=== PATIENT | female | born 1970 | race Caucasian/White ===

== ENCOUNTER 2017-08-11 13:59 | Emergency (ER) | payer OTHER ==
[~2017-08-11] VITALS: Ht 160 cm; Wt 200.9 kg
[~2017-08-11 13:59] MED LIST: LISINOPRIL10 MG PO; NORCO 5-325 TA1 EACH PO; VIBRAMYCIN100 MG PO
[2017-08-11] MEDS ORDERED: LASIX80 MG PO (15:35)
[2017-08-11] MEDS ORDERED: MIRAPEX0.5 MG PO (15:36)
[2017-08-11] MEDS ORDERED: VENTOLIN HFA18 GM INH (15:37)
[2017-08-11] MEDS ORDERED: QVAR8.7 G1 (15:37)
[2017-08-11] MEDS ORDERED: COUMADIN5 MG PO (19:05)
[2017-08-11] MEDS ORDERED: LOVENOX150 MG SUB-Q (19:05)
--- NOTE | 2017-08-12 | EKG ---
[facility] [address] [facility] [place] [address] Signed Sinus rhythm with occasional premature ventricular complexes Low voltage QRS Borderline ECG No previous ECGs available Confirmed by ALCIDES BOOTHE MD ([id number]) on 08/12/2017 12:00:29 AM Electronically Signed By: ALCIDES OBOTHE MD 08/12/17 0000 PATIENT NAME: HOLDEN BEVERLY Electrocardiogram DATE OF : 68 PHYSICIAN: ALCIDES BOOTHE MD REPORT #: [id number] REPORT IS CONFIDENTIAL AND NOT TO BE RELEASED WITHOUT AUTHORIZATION
== END 2017-08-11 19:27 | disposition home or self-care (01) ==
LOC: ED 13:59
DX: I82.402 Acute embolism and thrombosis of unspecified deep veins of left lower extremity (principal); E66.01 Morbid (severe) obesity due to excess calories; Z68.43 Body mass index [BMI] 50.0-59.9, adult; I10 Essential (primary) hypertension; Z88.0 Allergy status to penicillin; Z88.8 Allergy status to other drugs, medicaments and biological substances; Z88.5 Allergy status to narcotic agent; Z79.899 Other long term (current) drug therapy
CPT/HCPCS: 80048; 85025; 85379; 85610; 85730; 93005; 93010; 93971; 96372; 99284; J1650

== ENCOUNTER 2019-04-13 09:39 | Emergency (ER) | payer BC ==
[~2019-04-13] VITALS: Ht 160 cm; Wt 204.1 kg
[~2019-04-13 09:39] MED LIST changes: +COUMADIN5 MG PO; +LASIX80 MG PO; +LOVENOX150 MG SUB-Q; +MIRAPEX0.5 MG PO; +QVAR8.7 G1; +VENTOLIN HFA18 GM INH
[2019-04-13] MEDS ORDERED: TYLENOL325 M1 PO (09:55)
[2019-04-13] MEDS ORDERED: AMITRIPTYLINE H10 MG PO (09:55)
[2019-04-13] MEDS ORDERED: CITALOPRAM HBR20 MG PO (09:55)
[2019-04-13] MEDS ORDERED: ZANTAC150 MG PO (09:56)
[2019-04-13] MEDS ORDERED: VITAMIN D1000 UNIT PO (09:56)
== END 2019-04-13 10:45 | disposition home or self-care (01) ==
LOC: ED 09:39
DX: S93.601A Unspecified sprain of right foot, initial encounter (principal); I10 Essential (primary) hypertension; E66.01 Morbid (severe) obesity due to excess calories; Z88.0 Allergy status to penicillin; Z88.5 Allergy status to narcotic agent; Z88.6 Allergy status to analgesic agent; Z88.8 Allergy status to other drugs, medicaments and biological substances; Z79.899 Other long term (current) drug therapy; W22.8XXA Striking against or struck by other objects, initial encounter
CPT/HCPCS: 73630; 99283

== ENCOUNTER 2019-08-28 11:50 | Emergency (ER) | payer OTHER ==
[~2019-08-28] VITALS: Ht 160 cm; Wt 204.1 kg
[~2019-08-28 11:50] MED LIST changes: +AMITRIPTYLINE H10 MG PO; +CITALOPRAM HBR20 MG PO; +TYLENOL325 M1 PO; +VITAMIN D1000 UNIT PO; +ZANTAC150 MG PO
[2019-08-28] MEDS ORDERED: CELEXA10 MG PO (12:07)
--- NOTE | 2019-08-28 18:33 | EKG ---
[facility] [address] [facility] [place] [address] Signed Normal sinus rhythm Low voltage QRS Borderline ECG When compared with ECG of 11-AUG-2017 17:10, premature ventricular complexes are no longer present Confirmed by ALCIDES BOOTHE MD ([id number]) on 08/28/2019 6:33:12 PM Electronically Signed By: ALCIDES BOOTHE MD 08/28/19 1833 PATIENT NAME: SIRIAHOLDENBIN LEWIS Electrocardiogram DATE OF : 68 PHYSICIAN: ALCIDES BOOTHE MD REPORT #: [id number] REPORT IS CONFIDENTIAL AND NOT TO BE RELEASED WITHOUT AUTHORIZATION
== END 2019-08-28 15:10 | disposition home or self-care (01) ==
LOC: ED 11:50
DX: R55 Syncope and collapse (principal); I10 Essential (primary) hypertension; Z88.5 Allergy status to narcotic agent; Z88.0 Allergy status to penicillin; Z88.6 Allergy status to analgesic agent; Z79.899 Other long term (current) drug therapy
CPT/HCPCS: 80053; 83735; 84484; 85025; 93005; 93010; 96360; 99284-25; J7120

== ENCOUNTER 2022-08-30 10:17 | Emergency (ER) | payer OTHER ==
[~2022-08-30] VITALS: Ht 160 cm; Wt 213.2 kg
[~2022-08-30 10:17] MED LIST changes: +CELEXA10 MG PO; +TUMS SMOOTHIES300 MG PO
[2022-08-30] MEDS ORDERED: PREDNISONE20 MG PO (12:08)
[2022-08-30] MEDS ORDERED: DOXYCYCLINE HY100 MG PO (12:08)
--- NOTE | 2022-09-02 20:54 | EKG ---
[facility] [address] [facility] [place] [address] Signed Normal sinus rhythm Cannot rule out Anterior infarct (cited on or before 19-MAY-2020) Abnormal ECG When compared with ECG of 19-MAY-2020 16:07, No significant change was found Confirmed by Kimberly Gates MD () on 09/02/2022 8:54:49 PM Electronically Signed By: KIMBERLY GATES MD 09/02/222053 PATIENT NAME: HOLDEN BEVERLY Electrocardiogram DATE OF : 68 PHYSICIAN: KIMBERLY GATES MD REPORT #: [id number] REPORT IS CONFIDENTIAL AND NOT TO BE RELEASED WITHOUT AUTHORIZATION
== END 2022-08-30 12:46 | disposition home or self-care (01) ==
LOC: ED 10:17
DX: J40 Bronchitis, not specified as acute or chronic (principal); Z20.822 Contact with and (suspected) exposure to COVID-19; I10 Essential (primary) hypertension; E66.01 Morbid (severe) obesity due to excess calories; Z88.0 Allergy status to penicillin; Z88.6 Allergy status to analgesic agent; Z88.5 Allergy status to narcotic agent; Z88.8 Allergy status to other drugs, medicaments and biological substances; Z79.899 Other long term (current) drug therapy
CPT/HCPCS: 36415; 71045; 80053; 83735; 84484; 85025; 87502; 93005; 93010; 99284-25; U0003

== ENCOUNTER 2023-06-23 09:24 | Emergency (ER) | payer OTHER ==
[~2023-06-23] VITALS: Ht 160 cm; Wt 213.2 kg
[~2023-06-23 09:24] MED LIST changes: +DOXYCYCLINE HY100 MG PO; +PREDNISONE20 MG PO
[2023-06-23] MEDS ORDERED: CITALOPRAM HBR20 MG PO (09:41)
[2023-06-23] MEDS ORDERED: PRAMIPEXOLE DI0.5 MG PO (09:41)
[2023-06-23] MEDS ORDERED: CIPRO500 MG PO (12:27)
[2023-06-23] MEDS ORDERED: PYRIDIUM200 MG PO (12:27)
[2023-06-23 12:41] VITALS: BP 167/92
== END 2023-06-23 12:42 | disposition home or self-care (01) ==
LOC: ED 09:24
DX: N39.0 Urinary tract infection, site not specified (principal); R10.2 Pelvic and perineal pain; I10 Essential (primary) hypertension; E66.01 Morbid (severe) obesity due to excess calories; Z68.45 Body mass index [BMI] 70 or greater, adult; Z88.0 Allergy status to penicillin; Z88.8 Allergy status to other drugs, medicaments and biological substances; Z88.5 Allergy status to narcotic agent; Z79.899 Other long term (current) drug therapy
CPT/HCPCS: 36415; 76830; 76856; 80053; 81001; 85025; 87088; 87210; 87491; 96374; 96375; 96376; 99284-25; J0696; J2270; J2405

== ENCOUNTER 2023-08-27 03:39 | Emergency (ER) | payer OTHER ==
[~2023-08-27] VITALS: Ht 160 cm; Wt 227.6 kg
--- OUTSIDE RECORDS SUMMARY | ~2023-08-27 | XMS | Continuity of Care Document ---
Demographics + + + | Address | [address] | | | [place] [address] | + + + | Preferred Language | Unknown | + + + | Marital Status | | + + + | Adventist Affiliation | Unknown | + + + | Race | White | + + + | Ethnic Group | Not or | + + + Author + + + | Author | [facility] | + + + | Organization | [facility] | + + + | Address | [address] | | | [place] [address] | + + + | Phone | | + + + Care Team Providers + + + + | Care Usps Letter Carrier Name | Role | Phone | + + + + Unavailable | Unavailable | + + + + Allergies No information. Encounters No information. Functional Status No information. Immunizations No information. Medications No information. Problems + + + + | date | description | facility | + + + + | 2023-06-23 09:25 | MORBID (SEVERE) OBESITY | [facility] | | | DUE TO EXCESS CALORIES | | + + + + | 2023-06-23 09:25 | Essential (primary) | [facility] | | | hypertension | | + + + + | 2023-06-23 09:25 | URINARY TRACT INFECTION, | [facility] | | | SITE NOT SPECIFIED | | + + + + | 2023-06-23 09:25 | PELVIC AND PERINEAL PAIN | [facility] | + + + + | 2023-06-23 09:25 | DYSURIA | [facility] | + + + + | 2023-06-23 09:25 | BODY MASS INDEX (BMI) 70 | [facility] | | | OR GREATER, ADULT | | + + + + | 2023-06-23 09:25 | OTHER LABORATORY ANIMAL CARETAKER (CURRENT) | [facility] | | | DRUG THERAPY | | + + + + | 2023-06-23 09:25 | ALLERGY STATUS TO | [facility] | | | PENICILLIN | | + + + + | 2023-06-23 09:25 | ALLERGY STATUS TO NARCOTIC | [facility] | | | AGENT STATUS | | + + + + | 2023-06-23 09:25 | ALLERGY STATUS TO OTH | [facility] | | | DRUG/MEDS/BIOL SUBST STATUS | | | | | | + + + + Procedures No information. Results/Labs No information. Social History +--------+ + + | date | description | facility | +--------+ + + Vital Signs No information."
[~2023-08-27 03:39] MED LIST changes: +CIPRO500 MG PO; +PRAMIPEXOLE DI0.5 MG PO; +PYRIDIUM200 MG PO
[2023-08-27] MEDS ORDERED: PERCOCET 5-3251 EACH PO (05:20)
[2023-08-27 06:15] VITALS: BP 136/76
== END 2023-08-27 08:30 | disposition home or self-care (01) ==
LOC: ED 03:39
DX: S76.011A Strain of muscle, fascia and tendon of right hip, initial encounter (principal); M25.571 Pain in right ankle and joints of right foot; W01.0XXA Fall on same level from slipping, tripping and stumbling without subsequent striking against object, initial encounter; I10 Essential (primary) hypertension; Z88.0 Allergy status to penicillin; Z88.5 Allergy status to narcotic agent; Z88.8 Allergy status to other drugs, medicaments and biological substances; Z79.899 Other long term (current) drug therapy
CPT/HCPCS: 73502; 73610; 99283-25

== ENCOUNTER 2023-09-06 16:55 | Observation (INO) | payer BC ==
[~2023-09-06] VITALS: Ht 160 cm; Wt 227.0 kg
[~2023-09-06 16:55] MED LIST changes: +PERCOCET 5-3251 EACH PO; +TYLENOL EXTRA500 MG PO; -TYLENOL325 M1 PO; -VITAMIN D1000 UNIT PO; +VITAMIN D3250 MC2 PO
--- OUTSIDE RECORDS SUMMARY | 2023-09-06 16:56 | XMS ---
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 [place] has no Care Guidelines for this patient. [place] VISIT COUNT (12 MO.) [address] [facility] [place] TOTAL 3 NOTE: Visits indicate total known visits. ED/C VISIT TRACKING (12 MO.) 09/06/2023 16:[address] [facility] [place] TYPE: Emergency COMPLAINT: - FALL 08/27/2023 03:39 [facility] [place] TYPE: Emergency COMPLAINT: - HIP PAIN DIAGNOSES: - Allergy status to narcotic agent - Allergy status to other drugs, medicaments and biological substances - Allergy status to penicillin - Essential (primary) hypertension - Fall on same level from slipping, tripping and stumbling without subsequent striking against object, initial encounter - Other intermediate designer (current) drug therapy - Pain in right ankle and joints of right foot - Pain in right hip - Strain of muscle, fascia and tendon of right hip, initial encounter 06/23/2023 09:25 [facility] [place] TYPE: Emergency COMPLAINT: - VAGINAL PAIN, CRAMPING, ODOR DIAGNOSES: - Allergy status to narcotic agent - Allergy status to other drugs, medicaments and biological substances - Allergy status to penicillin - Body mass index [BMI] 70 or greater, adult - Dysuria - Essential (primary) hypertension - Morbid (severe) obesity due to excess calories - Other snf (current) drug therapy - Pelvic and perineal pain - Urinary tract infection, site not specified INPATIENT VISIT TRACKING (12 MO.) No inpatient visits to display in this time frame [id number]
[2023-09-06] MEDS ORDERED: B COMPLEX1 EACH PO (17:05)
[2023-09-06 17:26] LABS: BASOPHILS 0.7 % (0-2); EOSINOPHILS 3.1 % (0-6); HEMATOCRIT 30.1 % (35.0-50.0); HEMOGLOBIN 9.3 g/dL (12.0-18.0); MCH 25.2 (27-36); MCV 81.3 fl (81-99); MONOCYTES 5.3 % (0-12); NEUTROPHILS 80.9 % (39-80); PLATELET COUNT 234 K/uL (140-440); RBC 3.71 M/ul (4.3-5.7); RDW 19.2 (10.5-15.0)
[2023-09-06 17:43] LABS: ALBUMIN 3.4 g/dL (3.4-5.0); ALBUMIN/GLOBULIN RATIO 0.89 (1.1-2.4); ANION GAP 12.1 (7-21); BILIRUBIN, TOTAL 0.4 ng/dL (0.2-1.0); BUN/CREATININE RATIO 20.54 (6.0-28.6); CALCIUM 8.7 mg/dL (8.5-10.1); CREATININE, SERUM 0.73 mg/dL (0.55-1.02); POTASSIUM 4.1 mmol/L (3.5-5.1); PROTEIN, TOTAL 7.2 g/dL (6.4-8.2)
[2023-09-06 18:44] LABS: INFLUENZA B NAA NEGATIVE (NEGATIVE); RESPIRATORY SYNCYTIAL VIR NAA NEGATIVE (NEGATIVE)
[2023-09-07 12:37] VITALS: BP 139/64
[2023-09-07] MEDS ORDERED: GLUCOSAMINE CH1 EAC1 PO (14:13)
[2023-09-07] MEDS ORDERED: CAL MAG ZINC +1 EACH PO (14:15)
[2023-09-07] MEDS ORDERED: GARLIC100 MG PO (14:15)
[2023-09-07] MEDS ORDERED: WOMEN'S 50 PLU1 EACH PO (14:15)
[2023-09-07] MEDS ORDERED: FLOVENT HFA12 GM INH (14:21)
[2023-09-07 18:36] VITALS: BP 162/70
[2023-09-07 20:08] VITALS: BP 136/68
[2023-09-08 02:20] VITALS: BP 132/67
[2023-09-08 05:53] VITALS: BP 123/62
[2023-09-08 10:20] VITALS: BP 153/89
[2023-09-08 14:25] VITALS: BP 121/60
[2023-09-08 18:41] VITALS: BP 134/58
[2023-09-08 21:30] VITALS: BP 128/54
[2023-09-09 04:25] VITALS: BP 124/57
[2023-09-09 09:35] VITALS: BP 123/64
[2023-09-09 13:21] VITALS: BP 128/59
[2023-09-09 17:45] VITALS: BP 128/52
[2023-09-09 20:48] VITALS: BP 118/63
[2023-09-10 05:42] LABS: BASOPHILS 0.7 % (0-2); HEMATOCRIT 27.9 % (35.0-50.0); HEMOGLOBIN 8.8 g/dL (12.0-18.0); LYMPHOCYTES 16.3 % (24-44); MCH 25.6 (27-36); MCHC 31.6 g/dl (30-36); MCV 81.1 fl (81-99); MONOCYTES 5.4 % (0-12); NEUTROPHILS 72.6 % (39-80); PLATELET COUNT 202 K/uL (140-440); RBC 3.44 M/ul (4.3-5.7)
[2023-09-10 05:50] LABS: ANION GAP 11.1 (7-21); BUN/CREATININE RATIO 20.28 (6.0-28.6); CALCIUM 8.6 mg/dL (8.5-10.1); CREATININE, SERUM 0.69 mg/dL (0.55-1.02); POTASSIUM 4.1 mmol/L (3.5-5.1)
[2023-09-10 06:18] VITALS: BP 132/58
[2023-09-10 09:50] VITALS: BP 148/61
[2023-09-10 13:21] VITALS: BP 138/58
[2023-09-10 17:41] VITALS: BP 108/46
[2023-09-10 21:08] VITALS: BP 129/57
[2023-09-11 03:37] LABS: IRON,SERUM OR PLASMA 29 ug/dL (28-170)
[2023-09-11 05:31] VITALS: BP 125/55
[2023-09-11 09:37] VITALS: BP 134/52
[2023-09-11 10:31] LABS: FERRITIN 38 ng/mL (13-150)
[2023-09-11 14:37] VITALS: BP 157/63
[2023-09-11 19:03] VITALS: BP 148/50
[2023-09-11 19:58] VITALS: BP 132/60
[2023-09-12 05:42] VITALS: BP 123/58
[2023-09-12] MEDS ORDERED: METHOCARBAMOL500 MG PO (09:10)
[2023-09-12] MEDS ORDERED: TRAMADOL HCL50 MG PO (09:11)
[2023-09-12] MEDS ORDERED: PREGABALIN25 MG PO (09:11)
[2023-09-12 09:19] VITALS: BP 121/56
== END 2023-09-12 10:30 | disposition home or self-care (01) ==
LOC: ED 16:55 → MS 16:56
PROVIDERS: Emergency Medicine; ADMIT Family Medicine; ATTEND Family Medicine
DX: M79.7 Fibromyalgia (principal); G25.81 Restless legs syndrome; E66.01 Morbid (severe) obesity due to excess calories; Z68.45 Body mass index [BMI] 70 or greater, adult; Z88.0 Allergy status to penicillin; Z88.5 Allergy status to narcotic agent; Z88.8 Allergy status to other drugs, medicaments and biological substances; I10 Essential (primary) hypertension; Z20.822 Contact with and (suspected) exposure to COVID-19
CPT/HCPCS: 36415; 73560; 80048; 80053; 82553; 82728; 85025; 87502; 94640; 94760; 97110; 97162; 97165; 97166; 97530; 97535; 99284-25; A9270; C9803; G0378; U0002

== ENCOUNTER 2023-11-04 23:47 | Emergency (ER) | payer BC ==
[~2023-11-04] VITALS: Ht 160 cm; Wt 227.1 kg
[~2023-11-04 23:47] MED LIST changes: +B COMPLEX1 EACH PO; +CAL MAG ZINC +1 EACH PO; +FLOVENT HFA12 GM INH; +GARLIC100 MG PO; +GLUCOSAMINE CH1 EAC1 PO; +METHOCARBAMOL500 MG PO; +PREGABALIN25 MG PO; +TRAMADOL HCL50 MG PO; +WOMEN'S 50 PLU1 EACH PO
[2023-11-05 00:26] LABS: BASOPHILS 0.6 % (0-2); EOSINOPHILS 3.8 % (0-6); HEMATOCRIT 30.1 % (35.0-50.0); HEMOGLOBIN 9.5 g/dL (12.0-18.0); LYMPHOCYTES 9.9 % (24-44); MCH 25.6 (27-36); MCHC 31.5 g/dl (30-36); NEUTROPHILS 80.7 % (39-80); PLATELET COUNT 224 K/uL (140-440); RBC 3.71 M/ul (4.3-5.7); RDW 18.7 (10.5-15.0)
[2023-11-05 00:44] LABS: BILIRUBIN, URINE NEGATIVE (negative); KETONE, URINE NEGATIVE (Negative)
[2023-11-05 00:45] LABS: BLOOD/HGB, URINE NEGATIVE (Negative); PH, URINE 6.5 (5-7)
[2023-11-05 00:46] LABS: LEUK ESTERASE, URINE NEGATIVE (negative); NITRITE, URINE NEGATIVE (negative)
[2023-11-05 00:48] LABS: ALBUMIN 3.4 g/dL (3.4-5.0); ANION GAP 13.8 (7-21); BILIRUBIN, TOTAL 0.3 ng/dL (0.2-1.0); BUN/CREATININE RATIO 19.48 (6.0-28.6); CALCIUM 8.5 mg/dL (8.5-10.1); CREATININE, SERUM 0.77 mg/dL (0.55-1.02); POTASSIUM 3.8 mmol/L (3.5-5.1); PROTEIN, TOTAL 6.8 g/dL (6.4-8.2)
[2023-11-05] MEDS ORDERED: TRAMADOL HCL50 MG PO (00:49)
[2023-11-05] MEDS ORDERED: LYRICA50 MG PO (00:49)
[2023-11-05 01:25] LABS: AMPHETAMINES, URINE NEGATIVE (NEGATIVE); BARBITURATES, URINE NEGATIVE (NEGATIVE); BENZODIAZEPINE, URINE NEGATIVE (NEGATIVE); BUPRENORPHINE, URINE NEGATIVE (NEGATIVE); CANNABINOID, URINE POSITIVE (NEGATIVE); COCAINE, URINE NEGATIVE (NEGATIVE); ECSTASY, URINE NEGATIVE (NEGATIVE); FENTANYL, URINE NEGATIVE (NEGATIVE); METHADONE, URINE NEGATIVE (NEGATIVE); OPIATES, URINE NEGATIVE (NEGATIVE); OXYCODONE, URINE NEGATIVE (NEGATIVE); PHENCYCLIDINE, URINE NEGATIVE (NEGATIVE)
[2023-11-05 02:29] VITALS: BP 139/75
== END 2023-11-05 02:32 | disposition home or self-care (01) ==
LOC: ED 23:47
PROVIDERS: Internal Medicine
DX: G89.29 Other chronic pain (principal); E66.01 Morbid (severe) obesity due to excess calories; G62.9 Polyneuropathy, unspecified; I10 Essential (primary) hypertension; Z88.0 Allergy status to penicillin; Z88.8 Allergy status to other drugs, medicaments and biological substances; Z88.5 Allergy status to narcotic agent; Z79.899 Other long term (current) drug therapy
CPT/HCPCS: 36415; 80053; 80307; 81003; 82553; 84550; 85025; 85379; 96374; 96375; 99283-25; J1170; J1885

== ENCOUNTER 2025-02-06 17:47 | Emergency (ER) | payer OTHER ==
[~2025-02-06] VITALS: Ht 160 cm; Wt 221.0 kg
[~2025-02-06 17:47] MED LIST changes: +CYCLOBENZAPRINE10 MG PO; +LYRICA50 MG PO; +OXYCODONE HCL5 MG PO
[2025-02-06 18:14] LABS: BASOPHILS 0.8 % (0-2); EOSINOPHILS 4.5 % (0-6); HEMATOCRIT 27.4 % (35.0-50.0); HEMOGLOBIN 8.6 g/dL (12.0-18.0); LYMPHOCYTES 12.5 % (24-44); MCH 24.3 (27-36); MCHC 31.4 g/dl (30-36); MCV 77.5 fl (81-99); MONOCYTES 4.6 % (0-12); NEUTROPHILS 77.6 % (39-80); PLATELET COUNT 195 K/uL (140-440); RBC 3.53 M/ul (4.3-5.7); RDW 19.1 (10.5-15.0)
[2025-02-06 18:38] LABS: ALBUMIN 3.1 g/dL (3.4-5.0); ALBUMIN/GLOBULIN RATIO 0.94 (1.1-2.4); ANION GAP 9.4 (7-21); BILIRUBIN, TOTAL 0.2 mg/dL (0.2-1.0); BUN/CREATININE RATIO 26.47 (6.0-28.6); CREATININE, SERUM 0.68 mg/dL (0.55-1.02); MAGNESIUM 1.8 mg/dL (1.8-2.4); POTASSIUM 3.4 mmol/L (3.5-5.1); PROTEIN, TOTAL 6.4 g/dL (6.4-8.2)
[2025-02-06] MEDS ORDERED: GABAPENTIN300 MG (19:05)
[2025-02-06] MEDS ORDERED: GABAPENTIN 300 MG CAP PO ONE (19:15)
[2025-02-06] MEDS ORDERED: CYCLOBENZAPRINE HCL 10 MG TAB PO ONE (19:15)
[2025-02-06] MEDS ORDERED: TRAMADOL HCL 50 MG TAB PO ONE (19:15)
[2025-02-06 20:57] LABS: INFLUENZA B NAA NEGATIVE (NEGATIVE); RESPIRATORY SYNCYTIAL VIR NAA NEGATIVE (NEGATIVE)
[2025-02-06] MEDS ORDERED: INHALER, ASSIST DEVICES 1 EACH SPACER MISC ONE (21:15)
[2025-02-06] MEDS ORDERED: methylPREDNISolone 4 MG HOME.PACK PO ONE (21:15)
[2025-02-06] MEDS ORDERED: ALBUTEROL SULFATE 8 GM HOME.PACK INH ONE (21:15)
[2025-02-06] MEDS ORDERED: AZITHROMYCIN 250 MG HOME.PACK PO ONE (21:15)
[2025-02-06 21:35] VITALS: BP 132/78
--- NOTE | 2025-02-08 15:48 | EKG ---
[facility] [address] [facility] [place], [place] [address] Signed Sinus rhythm with 1st degree AV block Low voltage QRS Borderline ECG No previous ECGs available Confirmed by Miguel Angel Argueta DO ([id number]) on 02/08/2025 3:48:40 PM Electronically Signed By: MIGUEL ANGEL ARGUETA DO 02/08/25 1548 PATIENT NAME: HOLDEN BEVERLY Electrocardiogram DATE OF : 68 PHYSICIAN: MIGUEL ANGEL ARGUETA DO REPORT #: [id number] REPORT IS CONFIDENTIAL AND NOT TO BE RELEASED WITHOUT AUTHORIZATION
== END 2025-02-06 21:45 | disposition home or self-care (01) ==
LOC: ED 17:47
PROVIDERS: Emergency Medicine; Family Medicine
DX: J44.0 Chronic obstructive pulmonary disease with (acute) lower respiratory infection (principal); J18.9 Pneumonia, unspecified organism; I11.0 Hypertensive heart disease with heart failure; I50.9 Heart failure, unspecified; E66.01 Morbid (severe) obesity due to excess calories; Z88.0 Allergy status to penicillin; Z88.8 Allergy status to other drugs, medicaments and biological substances; Z88.5 Allergy status to narcotic agent; Z79.899 Other long term (current) drug therapy
CPT/HCPCS: 36415; 71045; 80053; 83735; 83880; 84484; 85025; 87502; 93005; 93010; 94640; 94664; 99285-25; A9270; U0002

== ENCOUNTER 2025-06-25 11:31 | Emergency (ER) | payer MEDICARE, OTHER ==
[~2025-06-25] VITALS: Ht 160 cm; Wt 226.8 kg
[~2025-06-25 11:31] MED LIST changes: +GABAPENTIN300 MG
[2025-06-25] MEDS ORDERED: DULOXETINE HCL60 MG PO (11:43)
[2025-06-25 12:00] LABS: BASOPHILS 0.6 % (0.1-1.2); EOSINOPHILS 5.0 % (0.7-5.8); LYMPHOCYTES 11.4 % (19.3-51.7); MCH 23.4 PG (25.6-32.2); MCHC 28.9 g/dL (32.2-35.5); MCV 81.1 fL (79.4-94.8); MONOCYTES 8.5 % (4.7-12.5); NEUTROPHILS 73.9 % (34.0-71.1); RBC 3.54 M/uL (3.93-5.22)
[2025-06-25] MEDS ORDERED: ALBUTEROL/IPRATROPIUM 3 ML NEB INH ONE ×2 (12:00→13:45)
[2025-06-25 12:23] LABS: ALT (SGPT) 13.0 U/L (14-59); AST (SGOT) 17.0 U/L (15-37); GLOMERULAR FILTRATION RATE,EST 107.0 mL/min (>60); PROTEIN, TOTAL 6.7 g/dL (6.4-8.2); UREA NITROGEN 12.0 mg/dL (7-18)
[2025-06-25 12:36] LABS: INFLUENZA B NAA NEGATIVE (NEGATIVE); RESPIRATORY SYNCYTIAL VIR NAA NEGATIVE (NEGATIVE)
[2025-06-25] MEDS ORDERED: PREDNISONE20 MG PO (13:31)
[2025-06-25] MEDS ORDERED: DOXYCYCLINE HY100 MG PO (13:37)
[2025-06-25] MEDS ORDERED: DOXYCYCLINE HYCLATE 100 MG CAP PO ONE (13:45)
[2025-06-25 16:36] VITALS: BP 186/105
--- NOTE | 2025-06-25 21:24 | EKG ---
[facility] [address] [facility] [place] [address] Signed Sinus rhythm with 1st degree AV block Low voltage QRS Possible Anterolateral infarct , age undetermined Abnormal ECG When compared with ECG of 06-FEB-2025 17:53, No significant change was found Confirmed by Collins Argueta DO ([id number]) on 06/25/2025 9:23:55 PM Electronically Signed By: COLLINS ARGUETA DO 06/25/252123 PATIENT NAME: HOLDEN BEVERLY JOSHUA Electrocardiogram DATE OF : 68 PHYSICIAN: COLLINS ARGUETA DO REPORT #: [id number] REPORT IS CONFIDENTIAL AND NOT TO BE RELEASED WITHOUT AUTHORIZATION
== END 2025-06-25 16:14 | disposition home or self-care (01) ==
LOC: ED 11:31
PROVIDERS: Emergency Medicine
DX: J40 Bronchitis, not specified as acute or chronic (principal); I10 Essential (primary) hypertension; M19.90 Unspecified osteoarthritis, unspecified site; Z88.0 Allergy status to penicillin; Z88.5 Allergy status to narcotic agent
CPT/HCPCS: 36415; 71046; 80053; 82803; 83880; 84484; 85025; 87502; 93005; 93010; 94640; 99285-25; U0002